=== PATIENT | female | born 1970 | race Caucasian/White ===

== ENCOUNTER 2023-05-06 16:43 | Inpatient (IN) | payer OTHER ==
[2023-05-06 18:48] VITALS: BMI 25.7
[2023-05-06] MEDS ORDERED: IBUPROFEN 400 MG TABLET (FP) PO PRN (19:46)
[2023-05-06] MEDS ORDERED: BISMUTH SUBSALICYLATE 524 MG/30 ML PO PRN (19:46)
[2023-05-06] MEDS ORDERED: BENZOCAINE/MENTHOL (CHLORASEPTIC ) LOZENGE MM PRN (19:46)
[2023-05-06] MEDS ORDERED: MAGNESIUM HYDROX 2400MG/30ML ORAL SUSPENSION 30 ML CUP PO PRN (19:46)
[2023-05-06] MEDS ORDERED: MAG HYDROX/AL HYDROX/SIMETH 30 ML UNIT-DOSE CUP PO PRN (19:46)
[2023-05-06] MEDS ORDERED: NALOXONE HCL 0.4 MG/ML VIAL IM PRN (19:46)
[2023-05-06] MEDS ORDERED: ACETAMINOPHEN 325 MG TABLET (FP) PO PRN (19:46)
[2023-05-06] MEDS ORDERED: METHOCARBAMOL 500 MG TABLET PO PRN (19:46)
[2023-05-06] MEDS ORDERED: POLYETHYLENE GLYCOL (HEALTHYLAX) 3350 17 GM PACKET PO PRN (19:46)
[2023-05-06] MEDS ORDERED: IBUPROFEN 600 MG TABLET (FP) PO PRN (19:46)
[2023-05-06] MEDS ORDERED: DICYCLOMINE HCL 10 MG CAPSULE PO PRN (19:46)
[2023-05-06] MEDS ORDERED: NICOTINE POLACRILEX 2 MG GUM BUC PRN (19:46)
[2023-05-06] MEDS ORDERED: ONDANSETRON *ODT* 4 MG TABLET SL PRN (19:46)
[2023-05-06] MEDS ORDERED: LOPERAMIDE HCL 2 MG CAPSULE PO PRN (19:46)
[2023-05-06] MEDS ORDERED: guaiFENesin 600 MG TABLET.ER (FP) PO PRN (19:46)
[2023-05-06] MEDS ORDERED: NALOXONE HCL (KLOXXADO) 8 MG SPRAY NS PRN (19:46)
[2023-05-06] MEDS ORDERED: BENZONATATE 200 MG CAPSULE PO PRN (19:46)
[2023-05-06] MEDS: MELATONIN 5 MG TABLETS PO SCH (22:34)
[2023-05-06] MEDS: THIAMINE HCL 100 MG TABLET (FP) PO SCH (22:34)
[2023-05-07] MEDS: hydrOXYzine PAMOATE 25 MG CAPSULE (FP) PO PRN (01:13)
[2023-05-07] MEDS: PRENATAL VITAMINS W/ FOLIC ACID TABLET (FP) PO SCH (10:12)
[2023-05-07] MEDS: NICOTINE 7 MG/24 HOURS TOPICAL PATCH TD SCH (10:13)
[2023-05-07] MEDS ORDERED: cloNIDine HCL 0.1 MG TABLET PO PRN (10:18)
[2023-05-07] MEDS ORDERED: chlordiazePOXIDE HCL 25 MG CAPSULE PO PRN (10:22)
[2023-05-07] MEDS: chlordiazePOXIDE HCL 25 MG CAPSULE PO SCH ×3 (10:43→22:28)
[2023-05-07 11:36] LABS: HEMATOCRIT 40.9 % (32.4-45.2); HEMOGLOBIN 13.3 GM/dL (10.7-15.3); MCH 29.1 pg (25.7-33.7); MCHC 32.6 g/dl (32.0-36.0); MEAN CELL VOLUME 89.4 fl (80-96); MEAN PLT VOLUME 9.5 fl (7.5-11.1); PLATELET COUNT 193 10^3/uL (134-434); RBC 4.57 M/mm3 (3.60-5.2); RDW 13.6 % (11.6-15.6); WHITE BLOOD COUNT 5.5 K/mm3 (4.0-10.0)
[2023-05-07 11:48] LABS: POTASSIUM 4.2 mmol/L (3.5-5.1)
[2023-05-07 11:52] LABS: CALCIUM 8.4 mg/dL (8.5-10.1)
[2023-05-07 11:53] LABS: ALBUMIN 2.9 g/dl (3.4-5.0); BLOOD UREA NITROGEN 14.3 mg/dL (7-18)
[2023-05-07 11:56] LABS: CREATININE 0.7 mg/dL (0.55-1.3)
[2023-05-07 11:58] LABS: BILIRUBIN,TOTAL 0.4 mg/dL (0.2-1); TOT PROT 6.6 g/dl (6.4-8.2)
[2023-05-07] MEDS: THIAMINE HCL 100 MG TABLET (FP) PO SCH (22:28)
[2023-05-07] MEDS: MELATONIN 5 MG TABLETS PO SCH (22:28)
[2023-05-08] MEDS: chlordiazePOXIDE HCL 25 MG CAPSULE PO SCH ×2 (05:32→10:06)
[2023-05-08] MEDS: hydrOXYzine PAMOATE 25 MG CAPSULE (FP) PO PRN (05:32)
[2023-05-08] MEDS ORDERED: methaDONE HCL 10 MG TABLET (FOR DETOX USE ONLY) PO ONE (10:00)
[2023-05-08] MEDS: PRENATAL VITAMINS W/ FOLIC ACID TABLET (FP) PO SCH (10:05)
[2023-05-08] MEDS: NICOTINE 7 MG/24 HOURS TOPICAL PATCH TD SCH (10:49)
[2023-05-08] MEDS ORDERED: diazePAM 5 MG TABLET PO PRN (14:23)
[2023-05-08 14:54] VITALS: BP 117/92; PULSE 85; RESP 18; TEMP 96.8
[2023-05-08] MEDS ORDERED: diazePAM 5 MG TABLET PO SCH (17:00)
[2023-05-09] MEDS ORDERED: chlordiazePOXIDE HCL 10 MG CAPSULE PO SCH (05:00)
[2023-05-09] MEDS ORDERED: diazePAM 5 MG TABLET PO SCH (05:00)
[2023-05-10] MEDS ORDERED: chlordiazePOXIDE HCL 10 MG CAPSULE PO PRN
[2023-05-10] MEDS ORDERED: chlordiazePOXIDE HCL 10 MG CAPSULE PO SCH (05:00)
[2023-05-10] MEDS ORDERED: diazePAM 5 MG TABLET PO SCH (05:00)
[2023-05-10] MEDS ORDERED: methaDONE HCL 10 MG TABLET (FOR DETOX USE ONLY) PO ONE (10:00)
[2023-05-11] MEDS ORDERED: chlordiazePOXIDE HCL 10 MG CAPSULE PO ONE (05:00)
[2023-05-11] MEDS ORDERED: diazePAM 5 MG TABLET PO ONE (05:00)
== END 2023-05-08 16:20 | disposition left against medical advice (07) | DRG 770 ==
LOC: YASAS 16:43 → Y6N 20:51
PROVIDERS: ADMIT Allergy & Immunology; ATTEND Allergy & Immunology
PROC: HZ2ZZZZ Detoxification Services for Substance Abuse Treatment (ICD-10-PCS; principal; 2023-05-06)
DX: F11.23 Opioid dependence with withdrawal (principal); F10.230 Alcohol dependence with withdrawal, uncomplicated; F13.230 Sedative, hypnotic or anxiolytic dependence with withdrawal, uncomplicated; F17.213 Nicotine dependence, cigarettes, with withdrawal; F31.9 Bipolar disorder, unspecified; F41.9 Anxiety disorder, unspecified
CPT/HCPCS: 36415; 80053; 85027; 86780; 87635; 87811; 93005; 93010

== ENCOUNTER 2024-01-03 14:32 | Inpatient (IN) | payer OTHER ==
[2024-01-03 15:31] VITALS: BMI 23.0
[2024-01-03] MEDS ORDERED: DICYCLOMINE HCL 10 MG CAPSULE PO PRN (16:46)
[2024-01-03] MEDS ORDERED: BENZONATATE 200 MG CAPSULE PO PRN (16:46)
[2024-01-03] MEDS ORDERED: MAG HYDROX/AL HYDROX/SIMETH 30 ML UNIT-DOSE CUP PO PRN (16:46)
[2024-01-03] MEDS ORDERED: POLYETHYLENE GLYCOL (HEALTHYLAX) 3350 17 GM PACKET PO PRN (16:46)
[2024-01-03] MEDS ORDERED: IBUPROFEN 600 MG TABLET (FP) PO PRN (16:46)
[2024-01-03] MEDS ORDERED: BENZOCAINE/MENTHOL (CHLORASEPTIC ) LOZENGE MM PRN (16:46)
[2024-01-03] MEDS ORDERED: guaiFENesin 600 MG TABLET.ER (FP) PO PRN (16:46)
[2024-01-03] MEDS ORDERED: MAGNESIUM HYDROX 2400MG/30ML ORAL SUSPENSION 30 ML CUP PO PRN (16:46)
[2024-01-03] MEDS ORDERED: IBUPROFEN 400 MG TABLET (FP) PO PRN (16:46)
[2024-01-03] MEDS ORDERED: ONDANSETRON *ODT* 4 MG TABLET SL PRN (16:46)
[2024-01-03] MEDS ORDERED: ACETAMINOPHEN 325 MG TABLET (FP) PO PRN (16:46)
[2024-01-03] MEDS ORDERED: LOPERAMIDE HCL 2 MG CAPSULE PO PRN (16:46)
[2024-01-03] MEDS ORDERED: BISMUTH SUBSALICYLATE 524 MG/30 ML PO PRN (16:46)
[2024-01-03] MEDS ORDERED: NALOXONE HCL (KLOXXADO) 8 MG SPRAY NS PRN (16:46)
[2024-01-03] MEDS ORDERED: NALOXONE HCL 0.4 MG/ML VIAL IM PRN (16:46)
[2024-01-03] MEDS: diazePAM 5 MG TABLET PO PRN (19:57)
[2024-01-03] MEDS: MELATONIN 5 MG TABLETS PO SCH (22:15)
[2024-01-03] MEDS: METHOCARBAMOL 500 MG TABLET PO PRN (22:15)
[2024-01-03] MEDS: diazePAM 5 MG TABLET PO SCH (22:15)
[2024-01-03] MEDS: THIAMINE HCL 100 MG TABLET (FP) PO SCH (22:15)
[2024-01-04] MEDS ORDERED: methaDONE HCL 10 MG TABLET PO SCH (09:45)
[2024-01-04] MEDS: PRENATAL VITAMINS W/ FOLIC ACID TABLET (FP) PO SCH (10:16)
[2024-01-04] MEDS: methaDONE 40 MG, methaDONE 10 MG PO SCH (10:16)
[2024-01-04 11:42] LABS: HEMATOCRIT 41.6 % (32.4-45.2); HEMOGLOBIN 13.8 GM/dL (10.7-15.3); MCH 29.4 pg (25.7-33.7); MCHC 33.2 g/dl (32.0-36.0); MEAN CELL VOLUME 88.5 fl (80-96); MEAN PLT VOLUME 8.8 fl (7.5-11.1); PLATELET COUNT 216 10^3/uL (134-434); RDW 13.6 % (11.6-15.6); WHITE BLOOD COUNT 6.7 K/mm3 (4.0-10.0)
[2024-01-04 12:51] LABS: CHLORIDE 104 mmol/L (98-107); POTASSIUM 4.6 mmol/L (3.5-5.1); SODIUM 140 mmol/L (136-145)
[2024-01-04 12:59] LABS: CALCIUM 8.6 mg/dL (8.5-10.1)
[2024-01-04 13:00] LABS: ALBUMIN 2.8 g/dl (3.4-5.0); ANION GAP 6 mmol/L (4-13); BLOOD UREA NITROGEN 14.3 mg/dL (7-18); CO2 30 mmol/L (21-32); GLUCOSE,RANDOM 88 mg/dL (74-106)
[2024-01-04 13:03] LABS: CREATININE 0.6 mg/dL (0.55-1.3); SGOT/AST 11 U/L (15-37); SGPT/ALT 14 U/L (13-61)
[2024-01-04 13:05] LABS: BILIRUBIN,TOTAL 0.2 mg/dL (0.2-1); TOT PROT 6.4 g/dl (6.4-8.2)
[2024-01-04 13:06] LABS: ALK PHOS 99 U/L (45-117)
[2024-01-05] MEDS: diazePAM 5 MG TABLET PO SCH (05:32)
[2024-01-05] MEDS: hydrOXYzine PAMOATE 25 MG CAPSULE (FP) PO PRN (09:44)
[2024-01-06] MEDS: diazePAM 5 MG TABLET PO SCH (05:33)
[2024-01-06] MEDS: NICOTINE 21 MG/24 HOURS TOPICAL PATCH TD SCH (13:26)
[2024-01-06 19:52] VITALS: BP 108/75; PULSE 90; RESP 16; TEMP 97.7
[2024-01-07] MEDS ORDERED: diazePAM 5 MG TABLET PO ONE (06:00)
== END 2024-01-06 18:30 | disposition home or self-care (01) | DRG 773 ==
LOC: YASAS 14:32 → Y3N 18:37
PROVIDERS: ADMIT Allergy & Immunology; ATTEND Surgery
PROC: HZ2ZZZZ Detoxification Services for Substance Abuse Treatment (ICD-10-PCS; principal; 2024-01-03)
DX: F10.230 Alcohol dependence with withdrawal, uncomplicated (principal); F11.20 Opioid dependence, uncomplicated; F14.20 Cocaine dependence, uncomplicated; F17.213 Nicotine dependence, cigarettes, with withdrawal; M54.50 Low back pain, unspecified; G89.29 Other chronic pain; Z87.19 Personal history of other diseases of the digestive system; Z86.19 Personal history of other infectious and parasitic diseases; Z86.711 Personal history of pulmonary embolism
CPT/HCPCS: 36415; 80053; 80307; 81025; 85027; 86780; 93005; 93010